=== PATIENT | male | born 1970 | race African-American/Black ===

== ENCOUNTER 2024-11-21 03:02 | Inpatient (IN) | payer MEDICAID ==
[~2024-11-21] VITALS: Ht 177.8 cm; Wt 128.8 kg
[2024-11-21] VITALS (9 sets, daily range): BP systolic 114–123; BP diastolic 63–74; PULSE 78–96; RESP 12–20; TEMP 35.4–36.4; O2SAT 92–100
[2024-11-21] MEDS: ALBUTEROL (0.083%) 2.5MG/3ML NEB HHN ONE (03:32)
[2024-11-21] MEDS: IPRATROPIUM BROMIDE (0.02%) 0.5MG/2.5ML NEB HHN ONE (03:32)
[2024-11-21] MEDS: VISCOUS LIDOCAINE 2% 15 ML UDC MM ONE (03:33)
[2024-11-21] MEDS: ONDANSETRON HCL 4MG/2ML INJ IV ONE (03:33)
[2024-11-21] MEDS: MAGNESIUM HYDROXIDE 400MG/5ML 30ML UDC PO ONE (03:33)
[2024-11-21 03:46] LABS: BASOPHILS % 0.7 % (0.0-2.0); EOSINOPHILS % 0.8 % (0.0-5.0); HEMATOCRIT. 44.7 % (42.0-52.0); HEMOGLOBIN. 13.9 g/dL (14.0-18.0); LYMPHOCYTES % 24.4 % (20.0-50.0); MEAN PLATELET VOLUME 9.2 fl (7.4-10.4); MONOCYTES % 6.1 % (2.0-8.0); NEUTROPHILS % 68.0 % (40.0-76.0); PLATELET 179 x1000/uL (130-400); RED BLOOD CELL COUNT 5.28 mill/uL (4.7-6.1); RED CELL DISTRIBUTION WIDTH 19.3 % (11.6-14.6)
[2024-11-21 03:58] LABS: CREATININE 1.0 mg/dL (0.6-1.3); UREA NITROGEN BLOOD 8 mg/dL (9-23)
[2024-11-21 04:00] LABS: ASPARTATE AMINOTRANSFERASE 24 IU/L (<34); BILIRUBIN DIRECT 0.8 mg/dL (<=3.0); BILIRUBIN TOTAL 1.4 mg/dL (0.1-1.0); INR 1.3; PROTEIN TOTAL 7.8 g/dL (6.0-8.3); TROPONIN I HIGH SENSITIVITY 23 ng/L (3.0-53)
[2024-11-21] MEDS: FUROSEMIDE 40MG/4ML VIAL IVP NR (04:13)
[2024-11-21 04:33] LABS: *AMPHETAMINES SCREEN URINE NEGATIVE (NEGATIVE); *BARBITURATES SCREEN URINE NEGATIVE (NEGATIVE); *BENZODIAZEPINES SCREEN URINE NEGATIVE (NEGATIVE); *COCAINE SCREEN URINE NEGATIVE (NEGATIVE); CANNABINOID URINE SCREEN NEGATIVE (NEGATIVE); METHADONE URINE SCREEN NEGATIVE (NEGATIVE); OPIATES URINE SCREEN NEGATIVE (NEGATIVE); PHENCYCLIDINE URINE SCREEN NEGATIVE (NEGATIVE)
[2024-11-21 04:34] LABS: ECSTASY MDMA SCREEN URINE NEGATIVE (NEGATIVE)
[2024-11-21] MEDS ORDERED: ZOLPIDEM TARTRATE 5MG TABLET PO PRN (09:15)
[2024-11-21] MEDS ORDERED: ONDANSETRON HCL 4MG/2ML INJ IV PRN (09:15)
[2024-11-21] MEDS ORDERED: MAGNESIUM/ALUMINUM HYDROXIDE/SIMETHICONE 30ML UDC PO PRN (09:15)
[2024-11-21] MEDS ORDERED: HYDROCODONE/ACETAMINOPHEN 5/325MG TABLET PO PRN (09:15)
[2024-11-21] MEDS ORDERED: CLONIDINE 0.1MG TABLET PO PRN (09:15)
[2024-11-21] MEDS ORDERED: MORPHINE SULFATE 4 MG/ML INJ (FOR IV/IM USE) IV PRN (09:15)
[2024-11-21] MEDS ORDERED: NALOXONE HCL 0.4MG/ML VIAL IV PRN (09:30)
[2024-11-21] MEDS: FUROSEMIDE 40MG/4ML VIAL IVP SCH (11:22)
[2024-11-21] MEDS: ENOXAPARIN 40MG/0.4ML SYR SUBCUT SCH (11:22)
[2024-11-21] MEDS: IPRATROPIUM/ALBUTEROL 0.5-3(2.5)MG/3ML NEB NEB SCH (12:01)
[2024-11-21 17:23] LABS: TROPONIN I HIGH SENSITIVITY 20 ng/L (3.0-53)
[2024-11-21] MEDS: IPRATROPIUM/ALBUTEROL 0.5-3(2.5)MG/3ML NEB HHN SCH (20:20)
[2024-11-21 22:19] LABS: TROPONIN I HIGH SENSITIVITY 23 ng/L (3.0-53)
[2024-11-22] VITALS (12 sets, daily range): BP systolic 125–158; BP diastolic 66–96; PULSE 70–88; RESP 16–22; TEMP 36.1–36.7; O2SAT 85–99
[2024-11-22 06:31] LABS: BASOPHILS % 0.7 % (0.0-2.0); EOSINOPHILS % 1.1 % (0.0-5.0); HEMATOCRIT. 39.0 % (42.0-52.0); HEMOGLOBIN. 12.4 g/dL (14.0-18.0); LYMPHOCYTES % 17.9 % (20.0-50.0); MEAN PLATELET VOLUME 9.7 fl (7.4-10.4); MONOCYTES % 11.1 % (2.0-8.0); NEUTROPHILS % 69.2 % (40.0-76.0); PLATELET 148 x1000/uL (130-400); RED BLOOD CELL COUNT 4.60 mill/uL (4.7-6.1); RED CELL DISTRIBUTION WIDTH 18.9 % (11.6-14.6)
[2024-11-22 06:52] LABS: CREATININE 0.9 mg/dL (0.6-1.3); UREA NITROGEN BLOOD 9 mg/dL (9-23)
[2024-11-22] MEDS: PANTOPRAZOLE SODIUM 40 MG/VIAL IV SCH (08:53)
[2024-11-22] MEDS: THIAMINE HCL 100MG TABLET PO SCH (08:54)
[2024-11-22] MEDS: FOLIC ACID 1MG TABLET PO SCH (08:54)
[2024-11-22] MEDS: MULTIVITAMINS,THER W-MINERALS TABLET PO SCH (08:54)
[2024-11-22] MEDS ORDERED: LORAZEPAM 2MG/ML UD SYRINGE IV PRN ×2 (10:30→12:30)
[2024-11-22] MEDS ORDERED: NALOXONE HCL 0.4MG/ML VIAL IV PRN (10:45)
[2024-11-22 15:53] LABS: LDL CHOLESTEROL 38.0 mg/dL (5-100); TRIGLYCERIDE 47.0 mg/dL (0-150)
[2024-11-22 15:54] LABS: BILIRUBIN DIRECT 0.9 mg/dL (<=3.0); BILIRUBIN TOTAL 2.0 mg/dL (0.1-1.0)
[2024-11-22 16:31] LABS: HEPATITIS A AB IGM NEGATIVE (Negative); HEPATITIS B CORE AB IGM NEGATIVE (Negative)
[2024-11-22 16:32] LABS: HEPATITIS C AB NON REACTIVE (Neg) (Negative)
[2024-11-22 18:21] LABS: CLARITY URINE CLEAR (CLEAR); COLOR URINE YELLOW (YELLOW); GLUCOSE URINE NEGATIVE (NEGATIVE); KETONES URINE NEGATIVE (NEGATIVE); LEUKOCYTE ESTERASE URINE NEGATIVE (NEGATIVE); NITRITE URINE NEGATIVE (NEGATIVE); OCCULT BLOOD URINE TRACE (NEGATIVE); PH URINE 5.5 (4.5-8.0); PROTEIN URINE 2+ (NEGATIVE); SPECIFIC GRAVITY URINE 1.013 (1.005-1.030); UROBILINOGEN URINE 1.0 E.U./dL (0.2-1.0)
[2024-11-22 18:28] LABS: *AMPHETAMINES SCREEN URINE NEGATIVE (NEGATIVE); *BARBITURATES SCREEN URINE NEGATIVE (NEGATIVE); *BENZODIAZEPINES SCREEN URINE NEGATIVE (NEGATIVE); *COCAINE SCREEN URINE NEGATIVE (NEGATIVE); METHADONE URINE SCREEN NEGATIVE (NEGATIVE); OPIATES URINE SCREEN NEGATIVE (NEGATIVE)
[2024-11-22 18:29] LABS: CANNABINOID URINE SCREEN NEGATIVE (NEGATIVE); ECSTASY MDMA SCREEN URINE NEGATIVE (NEGATIVE); PHENCYCLIDINE URINE SCREEN NEGATIVE (NEGATIVE)
[2024-11-22 18:53] LABS: SQUAMOUS EPITHELIAL CELL URINE 1+ /lpf (RARE/1+)
[2024-11-22 18:54] LABS: HYALINE CASTS URINE 0-5 /lpf
[2024-11-22 18:55] LABS: BACTERIA URINE 1+; RBC URINE 0-2 /hpf (0-2); WBC URINE 0-2 /hpf (0-2)
[2024-11-22] MEDS ORDERED: MELATONIN 3MG TABLET PO PRN (21:00)
[2024-11-22] MEDS: ENOXAPARIN 30MG/0.3ML SYR SUBCUT SCH (22:05)
[2024-11-23] VITALS (12 sets, daily range): BP systolic 133–166; BP diastolic 74–96; PULSE 19–88; RESP 17–20; TEMP 35.9–36.6; O2SAT 94–100
[2024-11-23 06:44] LABS: BASOPHILS % 0.6 % (0.0-2.0); EOSINOPHILS % 2.2 % (0.0-5.0); HEMATOCRIT. 38.5 % (42.0-52.0); HEMOGLOBIN. 12.2 g/dL (14.0-18.0); LYMPHOCYTES % 17.9 % (20.0-50.0); MEAN PLATELET VOLUME 9.4 fl (7.4-10.4); MONOCYTES % 11.1 % (2.0-8.0); NEUTROPHILS % 68.2 % (40.0-76.0); PLATELET 135 x1000/uL (130-400); RED BLOOD CELL COUNT 4.59 mill/uL (4.7-6.1); RED CELL DISTRIBUTION WIDTH 18.4 % (11.6-14.6)
[2024-11-23 07:30] LABS: CREATININE 1.0 mg/dL (0.6-1.3); UREA NITROGEN BLOOD 11 mg/dL (9-23)
[2024-11-23] MEDS: ACETAMINOPHEN 325MG TABLET PO PRN (09:08)
[2024-11-23] MEDS ORDERED: ALBU18HF2 IH (12:10)
[2024-11-23] MEDS ORDERED: FURO-151 MT (12:10)
[2024-11-23] MEDS ORDERED: LISI10TA26 MT (12:10)
[2024-11-23] MEDS ORDERED: THIA100T72 PO (12:10)
== END 2024-11-23 20:10 | disposition home or self-care (01) | DRG 194 ==
LOC: ER 03:02 → EDBEDREQ 05:11 → EDBEDREQTM 05:11 → ENRESERV 06:22 → 5WST 06:34
PROVIDERS: ADMIT Internal Medicine; ATTEND Internal Medicine
DX: I11.0 Hypertensive heart disease with heart failure (principal); F10.229 Alcohol dependence with intoxication, unspecified; F17.210 Nicotine dependence, cigarettes, uncomplicated; Y90.8 Blood alcohol level of 240 mg/100 ml or more; J44.9 Chronic obstructive pulmonary disease, unspecified; I50.43 Acute on chronic combined systolic (congestive) and diastolic (congestive) heart failure
CPT/HCPCS: 36415; 71045; 74176; 76705; 80048; 80061; 80076; 80305; 80320; 81003; 82040; 82247; 82248; 82533; 82977; 83036; 83880; 84134; 84443; 84484; 85025; 86705; 86709; 87340; 93005; 93306; 93970; 94070; 94640; 94664; 94760; 96374; 96375; 98960; 99285; A4606; J1650; J1938; J2405; J2470; G0480